=== PATIENT | female | born 1995 | race Caucasian/White ===

== ENCOUNTER 2017-02-01 15:04 | Emergency (ER) | payer OTHER ==
[2017-02-01 15:32] LABS: Bilirubin Negative (Negative); Blood, Urine Negative (Negative); Glucose, Urine (Dipstick) Negative (Negative); Ketone, Urine Negative (Negative); Nitrite Negative (Negative); Protein, Urine (Dipstick) Negative (Neg-Trace)
[2017-02-01 15:33] LABS: Bacteria/HPF 2+ HPF (None Seen); Hyaline Casts/LPF 4-6 HYALINE CAST LPF (0-3 Hyaline); RBC/HPF 0-3 HPF (0-3); WBC/HPF 21-50 HPF (0-3)
== END 2017-02-01 17:00 | disposition home or self-care (01) ==
LOC: ERS 15:04
DX: O99.89 Other specified diseases and conditions complicating pregnancy, childbirth and the puerperium (principal); R10.32 Left lower quadrant pain; O21.9 Vomiting of pregnancy, unspecified; Z3A.01 Less than 8 weeks gestation of pregnancy
CPT/HCPCS: 36415; 81003; 81015; 81025; 84702; 99284

== ENCOUNTER 2017-05-09 15:24 | Emergency (ER) | payer OTHER ==
[2017-05-09] MEDS ORDERED: Acetaminophen 500 MG TAB ONE (16:39)
[2017-05-09 16:54] LABS: Bilirubin Negative (Negative); Blood, Urine Negative (Negative); Clarity CLOUDY (Clear); Glucose, Urine (Dipstick) Negative (Negative); Leukocyte Large (Negative); Nitrite Negative (Negative); Protein, Urine (Dipstick) Negative (Neg-Trace); Specific Gravity, Urine 1.022 (1.002-1.036); pH, Urine 5.5 (5.0-9.0)
[2017-05-09 16:56] LABS: Bacteria/HPF 1+ HPF (None Seen); Hyaline Casts/LPF 4-6 HYALINE CAST LPF (0-3 Hyaline); Pathc Cast-AUWi Flag 0.54 (0-2.49); RBC/HPF 0-3 HPF (0-3)
== END 2017-05-09 18:00 | disposition home or self-care (01) ==
LOC: ERS 15:24
DX: O23.42 Unspecified infection of urinary tract in pregnancy, second trimester (principal); Z3A.20 20 weeks gestation of pregnancy
CPT/HCPCS: 81003; 81015; 87081; 87086; 87430; 99283

== ENCOUNTER 2017-05-10 17:57 | Emergency (ER) | payer OTHER ==
[2017-05-10] MEDS ORDERED: Ondansetron HCl/PF 4 MG/2 ML Vial ONE (19:00)
[2017-05-10] MEDS ORDERED: Acetaminophen 500 MG TAB ONE (19:00)
[2017-05-10 19:45] LABS: #Lymphocytes 1.2 thou/uL (1.20-3.40); #Monocytes 0.8 thou/uL (0.11-0.59); #Neutrophils 10.7 thou/uL (1.40-6.50); %Basophils 0.2 % (0.0-1.0); %Eosinophils 0.4 % (0.0-10.0); %Lymphocytes 9.2 % (21.0-51.0); %Monocytes 6.1 % (0.0-10.0); %Neutrophils 84.1 % (42.0-75.0); Hemoglobin 11.4 g/dL (12.0-16.0); Mean Corpuscular HGB CONC 34.5 g/dL (32.0-36.0); Mean Corpuscular Volume 92.8 fl (81.0-99.0); Mean Platelet Volume 8.6 fL (7.4-10.4); Platelet Count 171 thou/uL (130-400); RBC Distribution Width 12.8 % (11.5-14.5); Red Blood Cell (RBC) Count 3.55 mill/uL (4.20-5.40); White Blood Cell (WBC) Count 12.7 thou/uL (4.8-10.8)
[2017-05-10 20:07] LABS: ALT (SGPT) Less than 7 U/L (8-55); AST (SGOT) 11 U/L (5-34); Albumin 3.3 g/dL (3.5-5.0); Alkaline Phosphatase 41 U/L (40-150); Anion Gap 9 mmol/L (10-20); BUN (Urea Nitrogen) 11 mg/dL (7.0-18.7); Bilirubin, Total 0.5 mg/dL (0.2-1.2); Calc. Creatinine Clearance 0 mL/min (70-130); Calcium 8.5 mg/dL (7.8-10.44); Carbon Dioxide 22 mmol/L (22-29); Chloride 108 mmol/L (98-107); Estimated GFR-MDRD Greater than 90; Glucose 79 mg/dL (70-105); Lipase 10 U/L (8-78); Potassium 3.7 mmol/L (3.5-5.1); Protein, Total 6.3 g/dL (6.0-8.3); Sodium 135 mmol/L (136-145)
== END 2017-05-10 21:08 | disposition home or self-care (01) ==
LOC: ERS 17:57
DX: O99.512 Diseases of the respiratory system complicating pregnancy, second trimester (principal); J11.1 Influenza due to unidentified influenza virus with other respiratory manifestations; Z79.899 Other long term (current) drug therapy
CPT/HCPCS: 80053; 83690; 85025; 96361; 96374; J2405

== ENCOUNTER 2017-07-18 10:35 | Day surgery (SDC) | payer SELFPAY ==
[2017-07-18 11:14] VITALS: BMI 26.4
--- NOTE | 2017-07-18 11:48 | PDOC.LDHP ---
Labor and Delivery H&P Chief complaint: other (Low back pain (chronic) at 30 weeks, ) HPI: @1140-50: Patient seen in Triage. Patient of Dr Pierce. Here at 30 weeks 2 days with low back pain No ROM No LOF No VB No trauma No ctx No complications Review of Systems: complete ROS done and neg per HPI Current gestational age (weeks): 30 (2 days) Dating criteria: last menstrual period Grav: 2 Para: 1 Current complications: none Current medications: none Previous surgical history: none Allergies/Adverse Reactions: Allergies Allergy/AdvReac Type Severity Reaction Status Date / Time No Known Allergies Allergy Verified 04/24/16 09:10 Social history: none - Physical Exam Vital signs reviewed and normal: yes General: NAD Heart: RRR Lungs: CTAB Abdomen: gravid Extremeties: no edema FHT: category 1 [place] contractions every: none - Vaginal Exam Effacement: 25% Station: -1 - Assessment Discomforts of at 30 weeks, no evidence PTL - Plan Plan: observation in L&D (We observed her in L&D with a NST. No evidence acute issue or complication. DX of discomforts of (back pain) D/W patient. No evidence of pyelo, or PTL. CX closed. OK for outpatient follow up. NST Cat 1)
== END 2017-07-18 11:50 | disposition home or self-care (01) ==
LOC: L&D/OP 10:35
PROVIDERS: ATTEND Obstetrics & Gynecology
DX: O99.89 Other specified diseases and conditions complicating pregnancy, childbirth and the puerperium (principal); M54.5 Low back pain; G89.29 Other chronic pain; Z3A.30 30 weeks gestation of pregnancy
CPT/HCPCS: 99282

== ENCOUNTER 2017-08-01 14:32 | Day surgery (SDC) | payer SELFPAY ==
[2017-08-01 15:11] VITALS: BMI 27.1
[2017-08-01] MEDS ORDERED: Sodium Chloride 0.9% 2,000 ML IV SCH (15:15)
[2017-08-01] MEDS ORDERED: Lactated Ringer's 1,000 ML IV SCH (15:15)
[2017-08-01] MEDS ORDERED: Ondansetron HCl/PF 4 MG/2 ML Vial IVP SCH (15:30)
[2017-08-01] MEDS ORDERED: Ondansetron ODT 4 MG TAB PO PRN (15:40)
[2017-08-01] MEDS ORDERED: Lidocaine 2% Viscous Solution 10 ML, Aluminum & Magnesium Hydroxide 30 ML SSW SCH ×2 (16:15)
[2017-08-01] MEDS ORDERED: Acetaminophen 500 MG TAB PO SCH (16:30)
[2017-08-01] MEDS ORDERED: diphenhydrAMINE 50 MG/ML VIAL IVP PRN (17:14)
[2017-08-01] MEDS ORDERED: Metoclopramide 10 MG/10 ML UDCUP PO SCH (17:15)
[2017-08-01] MEDS ORDERED: Morphine 4 MG/ML VIAL SLOW IVP ONE (20:21)
[2017-08-01] MEDS ORDERED: Sodium Chloride 0.9% 1,000 ML IV SCH (20:30)
--- NOTE | 2017-08-02 01:40 | ER ---
DATE OF ENCOUNTER: 08/01/2017 PRIMARY OB: Salomon Pierce M.D. CHIEF COMPLAINT: Nausea, vomiting, sore throat, and headache. HISTORY OF PRESENT ILLNESS: The patient is a 21-year-old G2, P1 female with an intrauterine pregnanc y at 32 weeks, who presents to Labor and Delivery with complaints of nausea and vomiting over the las t several days, sore throat, and headache that being intermittent headaches that returned today. Pat abhay reports that she has been unable to keep any fluids down for the last several days due to nausea and vomiting. There has been a sickness in the family with her boyfriend/significant other having d eveloped these symptoms before her. The patient also reports she has a history of migraines that she has been dealing with during this . Patient has been quite fatigued and just tired. She d enies fever. She reports her headache is accompanied by light sensitivity and feels it primarily on the right side. The patient also reports that she has been experiencing horrible heartburn with this , much worse at night and believes that this may be some of the instigation of her nausea a nd vomiting. The patient denies taking any medications at this time other than Tylenol and some anti nausea medicine. PAST MEDICAL HISTORY: Migraines. PAST SURGICAL HISTORY: Negative. ALLERGIES: No known drug allergies. SOCIAL HISTORY: Denies drug, alcohol, or tobacco use. OB LABS: Blood type is A negative. Antibody screen is negative. She is rubella nonimmune. RPR is nonreactive. GC and chlamydia are negative. Hepatitis B surface antigen is nonreactive. HIV is non reactive. REVIEW OF SYSTEMS: The patient denies fever. Reports headache per HPI. Nausea and vomiting per HPI . Denies constipation or diarrhea. Denies any rash. Denies vaginal bleeding or leakage of fluid. PHYSICAL EXAMINATION: VITAL SIGNS: Blood pressure 117/66, heart rate of 108, temperature 99.3, respiratory rate 18. GENERAL: She appears to be pretty uncomfortable, but no acute distress. She is alert and oriented, cooperative, and pleasant to interact with. HEAD: Normocephalic, atraumatic. LUNGS: Clear to auscultation bilaterally. HEART: Has regular rhythm and is slightly tachycardic. OROPHARYNX: Her throat has some injection but no exudate. ABDOMEN: Soft. EXTREMITIES: Nontender, nonedematous. GENITOURINARY EXAM: Has been deferred. HEART TRACING: Performed for nausea and vomiting in , baseline is noted to be in the 130s with moderate long-term variability, positive accelerations, no decelerations. ASSESSMENT AND PLAN: During this evaluation, the patient was given a total of 2 liters of normal sandra ine and 1 liter of LR and part of a fourth liter. Patient did not urinate until after 3 liters of fl uid was given to her. The patient was given Zofran to help with the nausea. She was given a GI cock tail to help with her heartburn and throat and was given Benadryl and Reglan to help with her migrain e with 4 mg of morphine. ASSESSMENT AND PLAN: The patient is a 21-year-old female G2, P1, with an intrauterine at 3 2 weeks, presenting with upper respiratory infection, migraine with nausea and vomiting, and dehydrat ion. Patient has been hydrated after 3 liters of IV fluids with improvement in her nausea and vomiti ng and heartburn and reported resolution of her headaches by the time she was discharged. The patien t was given a total of 50 mg of Benadryl IV and 40 mg of Reglan IV over a 2-hour period and 4 mg of Z ofran p.o. Fetus has a category 1 tracing reactive NST. The patient, in our discussion, report that she drinks a lot of caffeine and eats late at night, particularly her most recent dinner was sausage and barbecue. She does report she has medicine at home for nausea. I did recommend that she takes Zantac 75 mg 2-3 times a day, which she can get [id number] with ranitidine being the generic form. I encouraged to try to eat dinner before 6:00 and to refrain from heavy spicy meals in the [facility]. I have also recommended if possible for her to lift or elevate the head off her bed and gave h er instructions to give Dr. Pierce's office a call in the morning, as he has expressed interest in see ing her tomorrow. The patient was discharged home.
== END 2017-08-01 21:02 | disposition home or self-care (01) ==
LOC: L&D/OP 14:32
PROVIDERS: ATTEND Obstetrics & Gynecology
DX: O99.513 Diseases of the respiratory system complicating pregnancy, third trimester (principal); J06.9 Acute upper respiratory infection, unspecified; O99.89 Other specified diseases and conditions complicating pregnancy, childbirth and the puerperium; G43.909 Migraine, unspecified, not intractable, without status migrainosus; Z3A.32 32 weeks gestation of pregnancy
CPT/HCPCS: 96360; 96361; 96375; 99285; J1200; J2270; Q0162

== ENCOUNTER 2017-09-05 16:06 | Observation (INO) | payer BC, MEDICAID ==
[2017-09-05] MEDS ORDERED: Lactated Ringer's 1,000 ML IV SCH (17:00)
[2017-09-05] MEDS ORDERED: Ondansetron ODT 4 MG TAB SL SCH (17:15)
[2017-09-05 18:55] VITALS: BP 117/98
[2017-09-05] MEDS ORDERED: Zolpidem Tartrate 5 MG TAB PO PRN (21:58)
[2017-09-05 22:22] VITALS: BMI 27.2
[2017-09-06 03:14] VITALS: TEMP 98.3
--- NOTE | 2017-09-06 03:22 | PDOC.LDHP ---
Labor and Delivery H&P Chief complaint: contractions HPI: 21 y/o G1 at 37w3d, patient of Dr. Pierce, presents with regular ctx for several hours. Was seen in clinic today. Denies VB, LOF, or decreased FM. ROS neg for HEENT, CV, pulm, GI, , neuro, psych, skin, musculoskeletal, or constitutional symptoms other than mentioned above. Current complications: none Past Medical History: None Current medications: pre-mike vitamins Previous surgical history: none Allergies/Adverse Reactions: Allergies Allergy/AdvReac Type Severity Reaction Status Date / Time No Known Allergies Allergy Verified 09/05/17 22:21 Social history: none - Physical Exam Vital signs reviewed and normal: yes General: NAD, resting Lungs: nonlabored breathing Abdomen: gravid Extremeties: no edema FHT: category 1 (120s, mod variability, + accels, no decels) [place] contractions every: 4-6 mins - Vaginal Exam cm dilated: 4 Effacement: 75% Station: -2 - Assessment 21 y/o G1 at 37w3d with continued regular ctx and minimal cervical change. status reassuring with reactive NST. - Plan -: Will place on Obs, as patient lives far away. Given IV fluids for hydration. Dr. Pierce will recheck in am.
== END 2017-09-06 07:30 | disposition home or self-care (01) ==
LOC: L&D/OP 16:06 → INTOOBSV 22:59 → L&D 22:59
PROVIDERS: ADMIT Obstetrics & Gynecology; ATTEND Obstetrics & Gynecology
DX: O47.1 False labor at or after 37 completed weeks of gestation (principal); Z79.899 Other long term (current) drug therapy; Z3A.37 37 weeks gestation of pregnancy
CPT/HCPCS: 99285; G0378

== ENCOUNTER 2017-09-11 10:11 | Inpatient (IN) | payer BC, MEDICAID ==
[2017-09-11] MEDS: Lactated Ringer's 1,000 ML IV SCH ×2 (10:50→15:30)
[2017-09-11] MEDS ORDERED: Acetaminophen 500 MG TAB PO PRN (11:08)
[2017-09-11] MEDS ORDERED: HYDROcodone/Acetaminophen 5/325 mg Tablet PO PRN ×2 (11:08)
[2017-09-11] MEDS ORDERED: NS / Oxytocin 40 units/1000ml 1,000 ML IV PRN (11:08)
[2017-09-11] MEDS ORDERED: Docusate 100 MG CAP PO PRN (11:08)
[2017-09-11] MEDS ORDERED: Ibuprofen 800 MG TAB PO PRN (11:08)
[2017-09-11] MEDS ORDERED: Promethazine HCl 25 MG/ML VIAL IM PRN ×2 (11:08→15:45)
[2017-09-11] MEDS ORDERED: Methylergonovine 0.2 MG/ML VIAL IM PRN (11:08)
[2017-09-11] MEDS ORDERED: Lidocaine 1% (PF) 30 ML VIAL SC PRN ×2 (11:08→13:48)
[2017-09-11] MEDS ORDERED: Diphenoxylate HCl/Atropine Tablet PO PRN ×2 (11:08)
[2017-09-11] MEDS ORDERED: Zolpidem Tartrate 5 MG TAB PO PRN ×2 (11:08→18:46)
[2017-09-11] MEDS ORDERED: Butorphanol Tartrate 1 MG/ML VIAL SLOW IVP PRN (11:08)
[2017-09-11] MEDS ORDERED: Misoprostol 200 MCG TAB PR PRN (11:08)
[2017-09-11] MEDS ORDERED: Ondansetron HCl/PF 4 MG/2 ML Vial IVP PRN ×3 (11:08→18:46)
[2017-09-11] MEDS ORDERED: Bupivacaine/Epinephrine 0.25% 30 ML VIAL ONE (11:11)
[2017-09-11] MEDS ORDERED: ePHEDrine/0.9% NaCl/PF SYRINGE 50 mg/10 ml ONE (11:11)
[2017-09-11 11:32] LABS: Hemoglobin 9.5 g/dL (12.0-16.0); Mean Corpuscular HGB CONC 32.5 g/dL (32.0-36.0); Mean Corpuscular Hemoglobin 26.5 pg (27.0-31.0); Mean Corpuscular Volume 81.6 fl (81.0-99.0); Mean Platelet Volume 8.8 fL (7.4-10.4); Platelet Count 197 thou/uL (130-400); RBC Distribution Width 14.5 % (11.5-14.5); White Blood Cell (WBC) Count 9.3 thou/uL (4.8-10.8)
[2017-09-11 12:18] LABS: Hep B Surf Ag Non-Reactive S/CO (NonReactive); Syphilis Antibody Nonreactive (Nonreactive); Syphilis Antibody Index 0.04 S/CO (<1.00 Non-Reactive)
[2017-09-11] MEDS ORDERED: DISCONTINUE ALL PREVIOUS NARCOTICS FS SCH (13:00)
[2017-09-11] MEDS ORDERED: Bupivacaine 0.5% 20 ML, fentaNYL Citrate/PF 400 MCG in Sodium Chloride 0.9% 72 ML EPIDURAL SCH (13:00)
[2017-09-11] MEDS ORDERED: NS w/ Oxytocin 10 units 500 ML ONE (13:42)
[2017-09-11 13:56] VITALS: BMI 27.2
[2017-09-11] MEDS ORDERED: NS w/ Oxytocin 10 units 500 ML IV SCH (14:00)
[2017-09-11] MEDS ORDERED: Fentanyl 100 MCG/2 ML VIAL ONE ×2 (15:24→15:38)
[2017-09-11] MEDS ORDERED: ePHEDrine/0.9% NaCl/PF SYRINGE 50 mg/10 ml SLOW IVP PRN (15:45)
[2017-09-11] MEDS ORDERED: Eucerin (Mineral Oil/Petrolatum,White) 30 gm Jar TOP PRN (15:45)
[2017-09-11] MEDS ORDERED: Fentanyl 100 MCG/2 ML VIAL EPIDURAL PRN (15:45)
[2017-09-11] MEDS ORDERED: Lactated Ringer's 500 ML IV PRN (15:45)
[2017-09-11] MEDS ORDERED: diphenhydrAMINE 50 MG/ML VIAL IVP PRN (15:45)
[2017-09-11] MEDS ORDERED: Fentanyl 4mcg/Marcaine 0.1% Cassette 100 ML EPIDURAL SCH (15:45)
[2017-09-11] MEDS ORDERED: Naloxone HCl 0.4 mg/ml Vial IVP PRN ×2 (15:45)
[2017-09-11] MEDS ORDERED: Communication Order-Pharmacy FS SCH (15:45)
[2017-09-11] MEDS ORDERED: Acetaminophen 325 MG TAB PO PRN (15:45)
[2017-09-11] MEDS ORDERED: diphenhydrAMINE 25 MG CAP PO PRN (18:46)
[2017-09-11] MEDS ORDERED: Bisacodyl 10 MG SUPP PR PRN (18:46)
[2017-09-11] MEDS ORDERED: Benzocaine/Menthol 20-0.5% 60 ML CAN TOP PRN (18:46)
[2017-09-11] MEDS ORDERED: Preparation H Ointment 28 GM TUBE PR PRN (18:46)
[2017-09-11] MEDS ORDERED: Acetaminophen/Codeine 30-300mg Tablet PO PRN ×2 (18:46)
[2017-09-11] MEDS ORDERED: Milk Of Magnesia 30 ML UDCUP PO PRN (18:46)
[2017-09-11] MEDS ORDERED: Lanolin Ointment 7 GM TUBE TOP PRN (18:46)
[2017-09-11] MEDS ORDERED: Adacel (T-DAP) 0.5 ML VIAL IM ONE (18:46)
[2017-09-11] MEDS ORDERED: NS / Oxytocin 40 units/1000ml 1,000 ML IV SCH (19:00)
[2017-09-12] MEDS: Docusate Calcium (SURFAK) 240 MG CAP PO SCH ×3 (03:47→21:30)
[2017-09-12] MEDS: Ibuprofen 800 MG TAB PO SCH ×4 (03:47→21:30)
[2017-09-12 05:49] LABS: Hemoglobin 8.9 g/dL (12.0-16.0); Mean Corpuscular HGB CONC 32.7 g/dL (32.0-36.0); Mean Corpuscular Hemoglobin 27.2 pg (27.0-31.0); Mean Corpuscular Volume 83.2 fl (81.0-99.0); Mean Platelet Volume 8.6 fL (7.4-10.4); Platelet Count 158 thou/uL (130-400); RBC Distribution Width 14.3 % (11.5-14.5); Red Blood Cell (RBC) Count 3.26 mill/uL (4.20-5.40); White Blood Cell (WBC) Count 16.4 thou/uL (4.8-10.8)
[2017-09-12] MEDS: Ferrous Sulfate 325 MG TAB PO SCH ×2 (09:58→18:26)
[2017-09-12] MEDS: Prenatal Vitamin 1 TAB PO SCH (09:58)
[2017-09-13] MEDS: Ibuprofen 800 MG TAB PO SCH (05:50)
[2017-09-13 08:18] VITALS: BP 106/56; TEMP 98.4
[2017-09-13] MEDS: Docusate Calcium (SURFAK) 240 MG CAP PO SCH (09:01)
[2017-09-13] MEDS: Prenatal Vitamin 1 TAB PO SCH (09:01)
[2017-09-13] MEDS: Ferrous Sulfate 325 MG TAB PO SCH (09:01)
== END 2017-09-13 12:32 | disposition home or self-care (01) | DRG 775 ==
LOC: L&D 10:11 → 3SW 21:03
PROVIDERS: ADMIT Obstetrics & Gynecology; ATTEND Obstetrics & Gynecology
PROC: 10907ZC Drainage of Amniotic Fluid, Therapeutic from Products of Conception, Via Natural or Artificial Opening (ICD-10-PCS; principal; 2017-09-11)
PROC: 10E0XZZ Delivery of Products of Conception, External Approach (ICD-10-PCS; 2017-09-11)
PROC: 0UQMXZZ Repair Vulva, External Approach (ICD-10-PCS; 2017-09-11)
DX: O71.82 Other specified trauma to perineum and vulva (principal); Z3A.38 38 weeks gestation of pregnancy; Z37.0 Single live birth
CPT/HCPCS: 36415; 85027; 85461; 86780; 86850; 86870; 86900; 86901; 87340; 90384; 90715; 96372; J2001; J3010; J3490; J7050

== ENCOUNTER 2018-06-11 03:23 | Emergency (ER) | payer BC, MEDICAID | END 2018-06-11 04:20 | disposition home or self-care (01) | LOC: ERS 03:23 | DX: H60.93 Unspecified otitis externa, bilateral (principal); F17.210 Nicotine dependence, cigarettes, uncomplicated | CPT/HCPCS: 99282 ==

== ENCOUNTER 2018-06-21 03:09 | Emergency (ER) | payer BC, MEDICAID ==
[2018-06-21] MEDS ORDERED: Acetaminophen 325 MG TAB ONE (03:24)
== END 2018-06-21 03:35 | disposition home or self-care (01) ==
LOC: ERS 03:09
DX: J06.9 Acute upper respiratory infection, unspecified (principal); F17.210 Nicotine dependence, cigarettes, uncomplicated
CPT/HCPCS: 99283

== ENCOUNTER 2019-01-17 19:49 | Emergency (ER) | payer BC, OTHER ==
[2019-01-17] MEDS ORDERED: Ondansetron PF 4 MG/2 ML Vial ONE (20:49)
[2019-01-17 20:56] LABS: #Lymphocytes 1.1 thou/uL (1.20-3.40); #Monocytes 0.5 thou/uL (0.11-0.59); #Neutrophils 8.5 thou/uL (1.40-6.50); %Basophils 0.2 % (0.0-1.0); %Eosinophils 0.3 % (0.0-10.0); %Lymphocytes 10.6 % (21.0-51.0); %Monocytes 4.6 % (0.0-10.0); %Neutrophils 84.3 % (42.0-75.0); Mean Corpuscular HGB CONC 34.8 g/dL (32.0-36.0); Mean Corpuscular Hemoglobin 30.1 pg (27.0-31.0); Mean Corpuscular Volume 86.6 fL (78.0-98.0); Mean Platelet Volume 8.4 fL (7.4-10.4); Platelet Count 193 thou/uL (130-400); RBC Distribution Width 13.3 % (11.5-14.5); Red Blood Cell (RBC) Count 4.32 mill/uL (4.20-5.40)
[2019-01-17 21:19] LABS: Anion Gap 14 mmol/L (10-20); BUN (Urea Nitrogen) 16 mg/dL (7.0-18.7); Calc. Creatinine Clearance 0 mL/min (70-130); Calcium 9.1 mg/dL (7.8-10.44); Carbon Dioxide 22 mmol/L (22-29); Chloride 103 mmol/L (98-107); Estimated GFR-MDRD Greater than 90; Glucose 76 mg/dL (70-105); Potassium 3.6 mmol/L (3.5-5.1); Sodium 135 mmol/L (136-145)
[2019-01-17] MEDS ORDERED: Acetaminophen 500 MG TAB ONE (21:46)
[2019-01-17 23:13] LABS: Bilirubin Negative (Negative); Blood, Urine Negative (Negative); Clarity Turbid (Clear); Glucose, Urine (Dipstick) Normal (Negative); Leukocyte 500 Leu/uL (Negative); Nitrite Negative (Negative); Protein, Urine (Dipstick) 70 mg/dL (Neg-Trace); WBC/HPF 21-50 HPF (0-3)
[2019-01-17 23:21] LABS: Bacteria/HPF 3+ HPF (None Seen); Mucous/LPF 2+ LPF (<2+)
== END 2019-01-18 00:20 | disposition home or self-care (01) ==
LOC: ERS 19:49
DX: O23.42 Unspecified infection of urinary tract in pregnancy, second trimester (principal); O21.9 Vomiting of pregnancy, unspecified; Z3A.14 14 weeks gestation of pregnancy
CPT/HCPCS: 36415; 80048; 81003; 81015; 85025; 87086; 96361; 96374; J2405

== ENCOUNTER 2019-04-01 07:39 | Emergency (ER) | payer BC, OTHER | END 2019-04-01 08:40 | disposition home or self-care (01) | LOC: ERS 07:39 | DX: O99.512 Diseases of the respiratory system complicating pregnancy, second trimester (principal); J10.1 Influenza due to other identified influenza virus with other respiratory manifestations; Z3A.24 24 weeks gestation of pregnancy | CPT/HCPCS: 87804; 99283 ==

== ENCOUNTER 2019-07-14 16:28 | Day surgery (SDC) | payer BC, OTHER ==
[2019-07-14 16:53] VITALS: BP 129/78; TEMP 98.4; BMI 27.8
[2019-07-14] MEDS ORDERED: hydrALAZINE 20 MG/ML VIAL SLOW IVP PRN (17:17)
[2019-07-14] MEDS ORDERED: Ondansetron ODT 4 MG TAB SL PRN (17:18)
--- NOTE | 2019-07-14 18:51 | PDOC.LDHP ---
Labor and Delivery H&P Chief complaint: contractions HPI: 23 y/o at 38w4d, patient of Dr. Cintron, presents with ctx off and on since Sunday. Denies VB, LOF, or decreased FM. Having some white discharge. ROS neg for HEENT, cv, pulm, gi, gu, neuro, psych, skin, musculoskeletal or constitutional symptoms other than mentioned above. OB History Details: 2 prior SVDs Current complications: none Past Medical History: None Current medications: none Previous surgical history: none Allergies/Adverse Reactions: Allergies Allergy/AdvReac Type Severity Reaction Status Date / Time No Known Allergies Allergy Verified 07/14/19 16:48 Social history: none - Physical Exam Vital signs reviewed and normal: yes General: NAD, resting Lungs: nonlabored breathing Abdomen: gravid Extremeties: no edema FHT: category 1 (120s, mod variability, + accels, no decels) [place] contractions every: Irregular - Vaginal Exam cm dilated: 3 (Unchanged after 1 hour) Effacement: 25% Station: -3 - Assessment 23 y/o at 38w4d with no e/o active labor. status reassuring with reactive NST. VP3 + for gardnerella. - Plan -: D/c home with precautions. Advised to keep all appointments.
== END 2019-07-14 18:57 | disposition home or self-care (01) ==
LOC: L&D/OP 16:28
PROVIDERS: ATTEND Obstetrics & Gynecology
DX: O47.1 False labor at or after 37 completed weeks of gestation (principal); Z3A.38 38 weeks gestation of pregnancy
CPT/HCPCS: 87480; 87510; 87660; 99283

== ENCOUNTER 2019-07-22 05:20 | Inpatient (IN) | payer BC, OTHER ==
[2019-07-22 05:46] VITALS: BMI 27.8
[2019-07-22] MEDS: Lactated Ringer's 1,000 ML IV SCH ×2 (06:06→09:47)
[2019-07-22] MEDS ORDERED: Lidocaine 1% (PF) 30 ML VIAL SC PRN (06:08)
[2019-07-22] MEDS ORDERED: Promethazine HCl 25 MG/ML VIAL IM PRN ×2 (06:08→09:33)
[2019-07-22] MEDS ORDERED: Butorphanol Tartrate 1 MG/ML VIAL SLOW IVP PRN (06:08)
[2019-07-22] MEDS ORDERED: HYDROcodone/Acetaminophen 5/325 mg Tablet PO PRN ×4 (06:08→14:06)
[2019-07-22] MEDS ORDERED: hydrALAZINE 20 MG/ML VIAL SLOW IVP PRN ×2 (06:08→14:06)
[2019-07-22] MEDS ORDERED: NS w/ Oxytocin 10 units 500 ML IV SCH ×2 (06:08)
[2019-07-22] MEDS ORDERED: NS / Oxytocin 40 units/1000ml 1,000 ML IV PRN (06:08)
[2019-07-22] MEDS ORDERED: Ondansetron PF 4 MG/2 ML Vial IVP PRN ×3 (06:08→14:06)
[2019-07-22] MEDS ORDERED: Ibuprofen 800 MG TAB PO PRN (06:08)
[2019-07-22 06:24] LABS: Hemoglobin 9.5 g/dL (12.0-16.0); Mean Corpuscular HGB CONC 33.2 g/dL (32.0-36.0); Mean Corpuscular Hemoglobin 27.2 pg (27.0-31.0); Mean Corpuscular Volume 81.9 fL (78.0-98.0); Mean Platelet Volume 10.6 fL (7.4-10.4); Platelet Count 172 thou/uL (130-400); RBC Distribution Width 13.9 % (11.5-14.5); Red Blood Cell (RBC) Count 3.49 mill/uL (4.20-5.40); White Blood Cell (WBC) Count 9.4 thou/uL (4.8-10.8)
[2019-07-22 07:01] LABS: Syphilis Antibody Nonreactive (Nonreactive); Syphilis Antibody Index 0.06 S/CO (<1.00 Non-Reactive)
[2019-07-22 07:02] LABS: HBSAg Index 0.23 S/CO (0-0.99); Hep B Surf Ag Non-Reactive S/CO (NonReactive)
[2019-07-22] MEDS ORDERED: Fentanyl 4 mcg/Bup 0.1% Cadd 100 ML ONE (08:36)
[2019-07-22] MEDS ORDERED: Bupivacaine/Epinephrine 0.25% 30 ML VIAL ONE (08:56)
[2019-07-22] MEDS ORDERED: diphenhydrAMINE 50 MG/ML VIAL IVP PRN (09:33)
[2019-07-22] MEDS ORDERED: Naloxone HCl 0.4 mg/ml Vial IVP PRN ×2 (09:33)
[2019-07-22] MEDS ORDERED: EPHEDRINE 25 MG/5 ML SYRINGE SLOW IVP PRN (09:33)
[2019-07-22] MEDS ORDERED: Lactated Ringer's 500 ML IV PRN (09:33)
[2019-07-22] MEDS ORDERED: Acetaminophen 325 MG TAB PO PRN (09:33)
[2019-07-22] MEDS ORDERED: Communication Order-Pharmacy FS SCH (09:45)
[2019-07-22] MEDS ORDERED: Fentanyl 4 mcg/Bupivacaine 0.1% Cassette 100 ML EPIDURAL SCH (09:45)
[2019-07-22] MEDS ORDERED: Lidocaine 1% (PF) 30 ML VIAL ONE (10:25)
[2019-07-22] MEDS ORDERED: NS / Oxytocin 40 units/1000ml 1,000 ML ONE (10:25)
--- NOTE | 2019-07-22 11:30 | PDOC.OPDEL ---
OB Operative/Delivery Note Delivery Dr/Surgeon: ASHLYN Pre-Delivery Diagnosis: elective induction Procedure/Post Delivery Dx: spontaneous vaginal delivery Weeks gestation: 39 Anesthesia: epidural - Findings A Sex: male - Additional Findings/Plan Placenta delivered: spontaneous Estimated blood loss: 100ML Post delivery plan: routine recovery
[2019-07-22] MEDS ORDERED: diphenhydrAMINE 25 MG CAP PO PRN (14:06)
[2019-07-22] MEDS ORDERED: NS / Oxytocin 40 units/1000ml 1,000 ML IV SCH (14:06)
[2019-07-22] MEDS ORDERED: Bisacodyl 10 MG SUPP PR PRN (14:06)
[2019-07-22] MEDS ORDERED: Milk Of Magnesia 30 ML UDCUP PO PRN (14:06)
[2019-07-22] MEDS ORDERED: Benzocaine-Menthol 82.5 ML CAN TOP PRN (14:06)
[2019-07-22] MEDS ORDERED: Adacel (T-DAP) 0.5 ML SYRINGE IM ONE (14:06)
[2019-07-22] MEDS: Ferrous Sulfate 325 MG TAB PO SCH (18:26)
[2019-07-22] MEDS: Ibuprofen 800 MG TAB PO SCH (20:59)
[2019-07-22] MEDS: Docusate Calcium (SURFAK) 240 MG CAP PO SCH (20:59)
[2019-07-23] MEDS: Ibuprofen 800 MG TAB PO SCH ×2 (04:51→14:07)
[2019-07-23 07:43] VITALS: BP 112/63; TEMP 97.9
--- NOTE | 2019-07-23 08:04 | PDOC.PP ---
Post Progress Note Post Day #: 1 Subjective: doing well, minimal lochia, baby latching well PO intake tolerated: yes Flatus: yes Ambulation: yes Vital Signs (12 hours) Temp Pulse Resp BP Pulse Ox 07/23/19 07:42 97.9 F 75 20 112/63 97 07/23/19 04:50 97.5 F L 78 20 108/58 L 96 07/23/19 00:00 98.5 F 92 18 98/52 L 98 07/22/19 20:50 98.9 F 95 18 116/67 98 Weight Weight 178 lb - Physical Examination General: NAD Respiratory: non-labored breathing Abdominal: no distention Fundus firm & at: below umb Neurological: no gross focal deficits Psychiatric: A&Ox3, normal affect Result Diagrams: 07/22/19 06:14 Additional Labs: Post Labs Blood Type A NEGATIVE 07/22/19 06:14 Hep Bs Antigen Non-Reactive S/CO (NonReactive) 07/22/19 06:14 (1) Vaginal delivery Code(s): O80 - ENCOUNTER FOR FULL-TERM UNCOMPLICATED DELIVERY Status: Acute (2) 39 weeks gestation of Code(s): Z3A.39 - 39 WEEKS GESTATION OF Status: Acute - Assessment/Plan PPD1, plan for DC if babyDC home today.
[2019-07-23] MEDS: Ferrous Sulfate 325 MG TAB PO SCH (08:38)
[2019-07-23] MEDS: Docusate Calcium (SURFAK) 240 MG CAP PO SCH (08:38)
[2019-07-23] MEDS ORDERED: Measles/Mumps/Rubella 10 MCG/0.5 ML VIAL SC ONE (15:45)
== END 2019-07-23 16:13 | disposition home or self-care (01) | DRG 807 ==
LOC: L&D 05:20 → 3SW 14:12
PROVIDERS: ADMIT Obstetrics & Gynecology; ATTEND Obstetrics & Gynecology
PROC: 10E0XZZ Delivery of Products of Conception, External Approach (ICD-10-PCS; principal; 2019-07-22)
DX: O66.0 Obstructed labor due to shoulder dystocia (principal); Z37.0 Single live birth; Z3A.39 39 weeks gestation of pregnancy
CPT/HCPCS: 36415; 51702; 85027; 85461; 86780; 86850; 86900; 86901; 87340; 90384; 90707; 96372; J2001; J2405; J2590

== ENCOUNTER 2020-03-07 02:30 | Emergency (ER) | payer BC, OTHER | END 2020-03-07 02:53 | disposition home or self-care (01) | LOC: ERS 02:30 | DX: H92.02 Otalgia, left ear (principal); J30.2 Other seasonal allergic rhinitis | CPT/HCPCS: 99282 ==

== ENCOUNTER 2022-03-27 16:04 | Emergency (ER) | payer BC, OTHER ==
[2022-03-27 20:49] LABS: Bacteria/HPF None Seen HPF (None Seen); Bilirubin Negative (Negative); Blood, Urine Trace (Negative); Clarity Clear (Clear); Glucose, Urine (Dipstick) Normal (Negative); Ketone, Urine Negative (Negative); Leukocyte Negative Leu/uL (Negative); Nitrite Negative (Negative); Pregnancy Test - Urine (BHCG) Negative (Negative); Pregu Control Background? CLEAR/WHITE (CLR/WHITE); Pregu Control Bar Appear? YES (CONTROL BAR); Protein, Urine (Dipstick) Negative (Neg-Trace); RBC/HPF 0-3 HPF (0-3); Specific Gravity 1.028 (1.002-1.036); Specific Gravity, Urine 1.028 (1.002-1.036); Squamous Epithelial 0-3 HPF (0-3); Urobilinogen Normal mg/dL (Less than 2); WBC/HPF 0-3 HPF (0-3); pH, Urine 6.5 (5.0-9.0)
[2022-03-28 11:18] LABS: Chlam.trachomatis by PCR,Urine Not Detected (NotDetected)
== END 2022-03-27 20:22 | disposition home or self-care (01) ==
LOC: ERS 16:04
DX: T19.2XXA Foreign body in vulva and vagina, initial encounter (principal)
CPT/HCPCS: 81003; 81015; 81025; 87491; 87591; 99283

== ENCOUNTER 2023-10-04 09:17 | Emergency (ER) | payer SELFPAY ==
[2023-10-04] MEDS ORDERED: Ondansetron ODT 4 MG TAB ONE (09:53)
[2023-10-04 10:19] LABS: Bacteria/HPF None Seen HPF (None Seen); Bilirubin Negative (Negative); Blood, Urine Negative (Negative); CAUTI Indications for Culture Dysuria,urgency,freq; Clarity Clear (Clear); Glucose, Urine (Dipstick) Normal (Negative); Ketone, Urine Negative (Negative); Leukocyte 75 Leu/uL (Negative); Nitrite Negative (Negative); Protein, Urine (Dipstick) 20 mg/dL (Neg-Trace); RBC/HPF 0-3 HPF (0-3); Specific Gravity, Urine 1.032 (1.002-1.036); Urobilinogen Normal mg/dL (Less than 2); WBC/HPF 0-3 HPF (0-3); pH, Urine 5.5 (5.0-9.0)
[2023-10-04 10:20] LABS: Urine Culture Reflex No No
[2023-10-04 10:34] LABS: #Basophils Less than 0.03 10x3/uL (0.0-0.2); %Basophils 0.2 % (0.0-1.0); %Eosinophils 3.4 % (0.0-10.0); %Lymphocytes 14.2 % (21.0-51.0); %Monocytes 3.8 % (0.0-10.0); %Neutrophils 78.1 % (42.0-75.0); Hematocrit 44.8 % (36.0-47.0); Hemoglobin 14.9 g/dL (12.0-16.0); Mean Corpuscular HGB CONC 33.3 g/dL (32.0-36.0); Mean Corpuscular Hemoglobin 29.3 pg (27.0-31.0); Mean Platelet Volume 11.3 fL (7.4-10.4); Platelet Count 195 10x3/uL (130-400); RBC Distribution Width 12.8 % (11.5-14.5); Red Blood Cell (RBC) Count 5.09 mill/uL (4.20-5.40)
[2023-10-04 10:45] LABS: BHCG - Serum Negative (NEGATIVE); Pregs Control Background? CLEAR/WHITE (CLR/WHITE); Pregs Control Bar Appear? YES (CONTROL BAR)
[2023-10-04 11:19] LABS: ALT (SGPT) 7 U/L (8-55); AST (SGOT) 15 U/L (5-34); Albumin 4.2 g/dL (3.5-5.0); Alkaline Phosphatase 59 U/L (40-110); Anion Gap 12 mmol/L (10-20); BUN (Urea Nitrogen) 24 mg/dL (7.0-18.7); Bilirubin, Total 1.5 mg/dL (0.2-1.2); Calc. Creatinine Clearance 0 mL/min (70-130); Calcium 9.2 mg/dL (7.8-10.44); Carbon Dioxide 23 mmol/L (22-29); Chloride 105 mmol/L (98-107); Estimated GFR 102; Globulin 3.6 g/dL (2.4-3.5); Glucose 88 mg/dL (70-105); Lipase 13 U/L (8-78); Potassium 4.2 mmol/L (3.5-5.1); Protein, Total 7.8 g/dL (6.0-8.3); Sodium 136 mmol/L (136-145)
== END 2023-10-04 11:54 | disposition home or self-care (01) ==
LOC: ERS 09:17
DX: R11.2 Nausea with vomiting, unspecified (principal); R19.7 Diarrhea, unspecified
CPT/HCPCS: 36415; 80053; 81001; 83690; 84703; 85025; 99283; Q0162